=== PATIENT | male | born 1985 | race American Indian/Alaskan Native ===

== ENCOUNTER 2016-03-12 11:05 | Emergency (ER) | payer OTHER ==
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
[2016-03-12 16:42] VITALS: BP 112/68
== END 2016-03-12 16:43 | disposition home or self-care (01) ==
LOC: ED 11:05
DX: M54.2 Cervicalgia (principal); M54.9 Dorsalgia, unspecified; V49.49XA Driver injured in collision with other motor vehicles in traffic accident, initial encounter; Y93.9 Activity, unspecified; Y92.9 Unspecified place or not applicable; Y99.9 Unspecified external cause status
CPT/HCPCS: 99282